=== PATIENT | female | born 1975 | race African-American/Black ===

== ENCOUNTER 2016-10-26 08:38 | Emergency (ER) | payer OTHER ==
[~2016-10-26] VITALS: Ht 162.6 cm; Wt 82.0 kg
[2016-10-26 08:40] VITALS: BP 120/74; PULSE 82; RESP 20; TEMP 97.7; O2SAT 100
[2016-10-26 09:00] VITALS: BP 115/56; PULSE 66; RESP 18; TEMP 98.4; O2SAT 100
[2016-10-26] MEDS ORDERED: SODIUM CHLOR 0.9% 1000 ML INJ 1,000 ML IV SCH (09:06)
--- NOTE | 2016-10-26 09:06 | PD ---
HPI Chief Complaint: GI Complaint Time Seen by Provider: 09:06 Travel History International Travel<30 days: No Contact w/Intl Traveler<30days: No Traveled to known affect area: No History of Present Illness HPI 41-year-old Afro-[place] female presents the emergency department with 3 day history of nausea, diarrhea, and sore throat. Patient denies vomiting at this time. Patient is unsure she's had a fever. Patient does state that her son had similar illness about a week ago. Patient denies significant abdominal pain. She has no cough, shortness breath, or chest pain. She denies blood in the diarrhea. Patient states she's had watery diarrhea every time she eats. Patient denies headache, ear pain, or sinus congestion. Throat pain is 6/10 and worse on the right than the left. She is allergic to Dilaudid. PFSH Past Medical History Cerebrovascular Accident: No Diabetes: No Diminished Hearing: No Myocardial Infarction: No Tetanus Vaccination: > 5 Years ?: Not LMP: 10/22/16 : 4 Para: 3 : 1 Tubal Ligation: Yes (2003) Past Surgical History Section: Yes Gynecologic Surgery: Yes (; PROCEDURE TO SHRINK FIBROIDS) Social History Alcohol Use: No Tobacco Use: No Substance Use: No Allergies-Medications (Allergen,Severity, Reaction): Coded Allergies: Dilaudid (Verified Allergy, Unknown, hives, 10/26/16) Reported Meds & Prescriptions Reported Meds & Active Scripts Active Zofran (Ondansetron HCl) 4 Mg Tab 4 Mg PO Q6HR PRN Review of Systems Except as stated in HPI: all other systems reviewed are Neg General / Constitutional: No: Fever Eyes: No: Visual changes HENT: Positive: Sore Throat, Congestion, No: Headaches, Vertigo, Lightheadedness, Rhinitis, Rhinorrhea, Nosebleed, Neck Stiffness, Neck Pain, Ear Discharge, Earache Cardiovascular: No: Chest Pain or Discomfort Respiratory: No: Cough, Shortness of Breath, Wheezing Gastrointestinal: Positive: Nausea, Diarrhea, Abdominal Pain (mild generalized) , Loss of Appetite Genitourinary: No: Dysuria Musculoskeletal: No: Pain Skin: No Rash Neurologic: No: Weakness Psychiatric: No: Depression Endocrine: No: Polydipsia Hematologic/Lymphatic: No: Easy Bruising Physical Exam Narrative GENERAL: Patient appears in mild distress. SKIN: Warm and dry. Normal color. Normal turgor. No diaphoresis. HEAD: Atraumatic. Normocephalic. EYES: Pupils equal and round. No scleral icterus. No injection or drainage. ENT: No nasal bleeding or discharge. Mucous membranes pink and moist. TMs are clear bilaterally. No sinus tenderness. Posterior pharynx is erythematous with mild tonsillitis without exudate. NECK: Trachea midline. Supple nontender without lymphadenopathy. CARDIOVASCULAR: Regular rate and rhythm. RESPIRATORY: No accessory muscle use. Clear to auscultation. Breath sounds equal bilaterally. GASTROINTESTINAL: Abdomen soft, mild generalized tenderness, nondistended. No point tenderness or rebound. Hepatic and splenic margins not palpable. MUSCULOSKELETAL: Extremities without clubbing, cyanosis, or edema. No obvious deformities. NEUROLOGICAL: Awake and alert. No obvious cranial nerve deficits. Motor grossly within normal limits. Five out of 5 muscle strength in the arms and legs. Normal speech. PSYCHIATRIC: Appropriate mood and affect; insight and judgment normal. Data Data Last Documented VS Vital Signs Date Time Temp Pulse Resp B/P Pulse Ox O2 Delivery O2 Flow Rate FiO2 10/26/16 08:52 18 10/26/16 08:40 97.7 82 120/74 100 Room Air Orders Complete Blood Count With Diff (10/26/16 09:06) Comprehensive Metabolic Panel (10/26/16 09:06) Lipase (10/26/16 09:06) Lactic Acid (10/26/16 09:06) Urinalysis - C+S If Indicated (10/26/16 09:06) Iv Access Insert/Monitor (10/26/16 09:06) Ecg Monitoring (10/26/16 09:06) Oximetry (10/26/16 09:06) NPO (10/26/16 09:06) Ondansetron Inj (Zofran Inj) (10/26/16 09:15) Sodium Chlor 0.9% 1000 Ml Inj (Ns 1000 M (10/26/16 09:06) Sodium Chloride 0.9% Flush (Ns Flush) (10/26/16 09:15) Group A Rapid Strep Screen (10/26/16 09:06) Influenzae A/B Antigen (10/26/16 09:06) Ketorolac Inj (Toradol Inj) (10/26/16 09:15) Strep Culture (Group A) (10/26/16 09:20) Labs Laboratory Tests Test 10/26/16 10/26/16 09:20 09:40 White Blood Count 6.8 TH/MM3 Red Blood Count 4.90 MIL/MM3 Hemoglobin 12.2 GM/DL Hematocrit 38.0 % Mean Corpuscular Volume 77.5 FL Mean Corpuscular Hemoglobin 24.9 PG Mean Corpuscular Hemoglobin 32.1 % Concent Red Cell Distribution Width 15.8 % Platelet Count 321 TH/MM3 Mean Platelet Volume 9.2 FL Neutrophils (%) (Auto) 55.9 % Lymphocytes (%) (Auto) 32.3 % Monocytes (%) (Auto) 4.0 % Eosinophils (%) (Auto) 6.7 % Basophils (%) (Auto) 1.1 % Neutrophils # (Auto) 3.8 TH/MM3 Lymphocytes # (Auto) 2.2 TH/MM3 Monocytes # (Auto) 0.3 TH/MM3 Eosinophils # (Auto) 0.5 TH/MM3 Basophils # (Auto) 0.1 TH/MM3 CBC Comment DIFF FINAL Differential Comment Sodium Level 138 MEQ/L Potassium Level 4.0 MEQ/L Chloride Level 106 MEQ/L Carbon Dioxide Level 26.9 MEQ/L Anion Gap 5 MEQ/L Blood Urea Nitrogen 10 MG/DL Creatinine 0.74 MG/DL Estimat Glomerular Filtration 105 ML/MIN Rate Random Glucose 80 MG/DL Lactic Acid Level 1.1 mmol/L Calcium Level 8.6 MG/DL Total Bilirubin 0.4 MG/DL Aspartate Amino Transf 17 U/L (AST/SGOT) Alanine Aminotransferase 22 U/L (ALT/SGPT) Alkaline Phosphatase 52 U/L Total Protein 7.7 GM/DL Albumin 3.7 GM/DL Lipase 193 U/L Urine Color LIGHT-YELLOW Urine Turbidity CLEAR Urine pH 5.0 Urine Specific [place] 1.005 Urine Protein NEG mg/dL Urine Glucose (UA) NEG mg/dL Urine Ketones NEG mg/dL Urine Occult Blood MOD Urine Nitrite NEG Urine Bilirubin NEG Urine Urobilinogen LESS THAN 2.0 MG/DL Urine Leukocyte Esterase TRACE Urine RBC 26 /hpf Urine WBC LESS THAN 1 /hpf Urine Squamous Epithelial 1 /hpf Cells Urine Transitional Epithelial <1 /hpf Cells Urine Mucus FEW /lpf Microscopic Urinalysis Comment CULT NOT INDICATED MDM Medical Decision Making Medical Screen Exam Complete: Yes Emergency Medical Condition: Yes Differential Diagnosis Strep pharyngitis. Gastroenteritis. Colitis. Diarrhea. Diverticulitis. Narrative Course Patient is medically stable at time of exam. Rapid strep and influenza are collected and sent to the lab. Labs ordered including CBC, CMP, lactic acid, urinalysis, and lipase. IV access is obtained patient is given 4 mg Zofran IV as well as 30 mg Toradol IV and 1000 mL normal saline bolus. CBC is unremarkable. CMP is within normal limits. Urinalysis is negative for signs of infection. Influenza is negative. Strep screen is negative. Lactic acid is normal at 1.1. Patient felt to be stable to be discharged home. Patient will be given Zofran 4 mg every 6 hours when necessary nausea. Patient is take [id number] Imodium or Kaopectate for diarrhea. Patient is to rest and push fluids and follow-up with primary care physician as needed. Work note is given until Wednesday. Patient can return with worsening symptoms if necessary. Diagnosis Primary Impression: Gastroenteritis and colitis, viral Referrals: Primary Care Physician Patient Instructions: Colitis (ED), Gastroenteritis (ED), General Instructions Departure Forms: Work Release Enter return to work date: Oct 28, 2016 Additional Instructions: CBC is unremarkable. CMP is within normal limits. Urinalysis is negative for signs of infection. Influenza is negative. Strep screen is negative. Patient felt to be stable to be discharged home. Patient will be given Zofran 4 mg every 6 hours when necessary nausea. Patient is take [id number] Imodium or Kaopectate for diarrhea. Patient is to rest and push fluids and follow-up with primary care physician as needed. Work note is given until Wednesday. Patient can return with worsening symptoms if necessary. Med/Other Pt SpecificInfo: Prescription(s) given Scripts Ondansetron (Zofran)4 Mg Tab4 Mg PO Q6HR PRN (NAUSEA OR VOMITING) #12 TAB Prov:Gordon Golden MD 10/26/16 Disposition: DISCHARGE HOME Condition: Stable Aubrey Coyle Oct 26, 2016 09:06
[2016-10-26] MEDS ORDERED: SODIUM CHLORIDE 0.9% FLUSH 10 ML FLUSH IV FLUSH PRN (09:15)
[2016-10-26] MEDS ORDERED: ONDANSETRON HCL 4 MG/2 ML VIAL IVP ONE (09:15)
[2016-10-26] MEDS ORDERED: KETOROLAC TROMETHAMINE 30 MG/ML (IVP) VIAL IV PUSH ONE (09:15)
[2016-10-26 09:57] LABS: AUTOMATED NEUTROPHIL # 3.8 TH/MM3 (1.8-7.7); BASOPHIL # 0.1 TH/MM3 (0-0.2); BASOPHIL % 1.1 % (0.0-2.0); EOSINOPHIL # 0.5 TH/MM3 (0-0.4); EOSINOPHIL % 6.7 % (0.0-4.0); HEMO FLAGS DIFF FINAL; LYMPH % 32.3 % (9.0-44.0); LYMPHOCYTE # 2.2 TH/MM3 (1.0-4.8); MEAN CELL VOLUME 77.5 FL (80.0-100.0); MEAN CORPUSCULAR HEMOGLOBIN 24.9 PG (27.0-34.0); MEAN CORPUSCULAR HGB CONC 32.1 % (32.0-36.0); NEUT % 55.9 % (16.0-70.0); PLATELET COUNT 321 TH/MM3 (150-450); RED CELL DISTRIBUTION WIDTH 15.8 % (11.6-17.2); WHITE BLOOD COUNT 6.8 TH/MM3 (4.0-11.0)
[2016-10-26 10:09] LABS: BLOOD, URINE MOD (NEG); COMMENT (UR) CULT NOT INDICATED; CULTURE IF INDICATED CULT NOT INDICATED; GLUCOSE,URINE NEG (NEG); KETONE, URINE NEG (NEG); MUCUS URINE FEW /lpf (OCC); NITRITE,URINE NEG (NEG); SQUAMOUS EPITHELIAL CELL URINE 1 /hpf (0-5); TRANSITIONAL EPI CELLS, URINE <1 /hpf; URINE COLOR LIGHT-YELLOW (YELLW/STRAW)
[2016-10-26 10:17] LABS: ANION GAP 5 MEQ/L (5-15); AST (GOT) 17 U/L (15-37); BICARBONATE 26.9 MEQ/L (21.0-32.0); BLOOD UREA NITROGEN 10 MG/DL (7-18); CHLORIDE 106 MEQ/L (98-107); GLOMERULAR FILTRATION RATE 105 ML/MIN (>89); SODIUM (NA) 138 MEQ/L (136-145)
[2016-10-26 10:18] LABS: ALT (GPT) 22 U/L (10-53)
[2016-10-26 10:21] LABS: ALKALINE PHOSPHATASE 52 U/L (45-117); TOTAL BILIRUBIN ADULT 0.4 MG/DL (0.2-1.0)
[2016-10-26] MEDS ORDERED: ZOFR4TAB PO (10:29)
[2016-10-26 10:50] VITALS: BP 112/58
== END 2016-10-26 10:51 | disposition home or self-care (01) ==
LOC: NEPC 08:38
DX: A08.4 Viral intestinal infection, unspecified (principal); Z88.5 Allergy status to narcotic agent
CPT/HCPCS: 80053; 81001; 83605; 83690; 85025; 87081; 87804; 87880; 96361; 96374; 96375; 99284; J1885; J2405; J7030